=== PATIENT | female | born 1960 | race Hispanic/Latino ===

== ENCOUNTER 2019-05-13 14:44 | Emergency (ER) | payer BC ==
[~2019-05-13] VITALS: Ht 165.1 cm; Wt 62.3 kg
[2019-05-13] MEDS ORDERED: PANTOPRAZOLE 40 MG 10ML VIAL IV NR (15:01)
[2019-05-13] MEDS ORDERED: ONDANSETRON HCL INJ 2MG/ML 2ML 2 MG/ML VIAL IV STA (15:01)
[2019-05-13] MEDS ORDERED: PANTOPRAZOLE 40 MG 10ML VIAL ONE (15:10)
[2019-05-13] MEDS ORDERED: ONDANSETRON HCL INJ 2MG/ML 2ML 2 MG/ML VIAL ONE (15:10)
[2019-05-13] MEDS ORDERED: SODIUM CHLORIDE 0.9% 1000ML 1,000 ML IV SCH (15:15)
[2019-05-13 15:56] VITALS: BP 114/70
== END 2019-05-13 16:12 | disposition home or self-care (01) ==
LOC: FSED 14:44
DX: R10.13 Epigastric pain (principal); K29.00 Acute gastritis without bleeding
CPT/HCPCS: 80053; 81003; 85025; 87400; 96374; 96375; 99283; C9113; J2405; J7030

== ENCOUNTER 2021-07-06 19:00 | Emergency (ER) | payer SELFPAY ==
[~2021-07-06] VITALS: Ht 165.1 cm; Wt 62.1 kg
[2021-07-06] MEDS ORDERED: BACTRIM DS TAB1 EACH PO (20:32)
== END 2021-07-06 20:45 | disposition home or self-care (01) ==
LOC: FSED 19:04
DX: M54.50 Low back pain, unspecified (principal); N39.0 Urinary tract infection, site not specified; R10.2 Pelvic and perineal pain; F17.210 Nicotine dependence, cigarettes, uncomplicated
CPT/HCPCS: 81003; 99282

== ENCOUNTER 2022-01-06 12:54 | Emergency (ER) | payer BC ==
[~2022-01-06] VITALS: Ht 165.1 cm; Wt 62.1 kg
[~2022-01-06 12:54] MED LIST: BACTRIM DS TAB1 EACH PO
[2022-01-06 14:21] LABS: BASOPHILS % 0.4 % (0.0-1.0); EOSINOPHILS % 0.6 % (0.0-6.0); HEMATOCRIT 44.9 % (34.2-44.1); HEMOGLOBIN 15.3 g/dL (12.0-16.0); LYMPHOCYTES # (AUTO) 1.5 (1.0-3.2); LYMPHOCYTES % 27.4 % (18.0-39.1); MEAN CORPUSCULAR HGB CONC 34.1 g/dL (31-35); MONOCYTES # (AUTO) 0.3 (0.2-0.8); MONOCYTES % 5.2 % (4.4-11.3); NEUTROPHILS # (AUTO) 3.6 (2.1-6.9); NEUTROPHILS % 66.2 % (38.7-80.0); PLATELET COUNT 131 x10e3/uL (140-360); RED BLOOD COUNT 4.63 x10e6/uL (3.6-5.1); RED CELL DISTRIBUTION WIDTH 12.1 % (11.7-14.4)
[2022-01-06 14:42] LABS: ALANINE AMINOTRANSFERASE 26 IU/L (0-55); ALBUMIN 4.3 g/dL (3.5-5.0); ALBUMIN/GLOBULIN RATIO 1.3 (0.8-2.0); ALKALINE PHOSPHATASE 89 IU/L (40-150); ANION GAP 15.8 mmol/L (8-16); BLOOD UREA NITROGEN 7 mg/dL (7-26); BUN/CREATININE RATIO 8 (6-25); CALCIUM 9.5 mg/dL (8.4-10.2); CARBON DIOXIDE 26 mmol/L (22-29); CHLORIDE 106 mmol/L (98-107); CREATINE KINASE 121 IU/L (29-168); CREATININE, SERUM 0.84 mg/dL (0.57-1.11); GLUCOSE 101 mg/dL (74-118); POTASSIUM 3.8 mmol/L (3.5-5.1); SODIUM 144 mmol/L (136-145)
== END 2022-01-06 15:50 | disposition home or self-care (01) ==
LOC: ER 13:12
DX: R10.13 Epigastric pain (principal); R13.10 Dysphagia, unspecified
CPT/HCPCS: 36415; 71046; 80053; 82550; 82553; 84484; 85025; 93005; 99283

== ENCOUNTER → 2022-01-22 | Day surgery (SDC) | payer BC, OTHER ==
[~2022-01-22] MED LIST changes: +CENTRUM ADULTS1 EACH PO; +HYOSCYAMINE SULFATE 0.5 MG/ML INJ ONE; +LIDOCAINE HCL 2% LOCAL INJ 5 ML SDV VIAL INJ ONE; +PANTOPRAZOLE SO40 MG PO; +PEPCID AC10 MG PO; +POVIDONE IODINE 0.05% 0.05 % ML PO ONE; +PROPOFOL IV EMULSION 10 MG/ML 20 ML VIAL ONE; +SUCRALFATE1 GM PO
[2022-01-22 14:30] VITALS: BP 134/81
== END | disposition home or self-care (01) ==
LOC: OR 10:47
PROVIDERS: ATTEND Internal Medicine Gastroenterology
DX: R19.7 Diarrhea, unspecified (principal); K63.5 Polyp of colon; K31.7 Polyp of stomach and duodenum; K29.50 Unspecified chronic gastritis without bleeding; K29.60 Other gastritis without bleeding; K21.00 Gastro-esophageal reflux disease with esophagitis, without bleeding; K57.30 Diverticulosis of large intestine without perforation or abscess without bleeding; K64.8 Other hemorrhoids; D72.820 Lymphocytosis (symptomatic); E16.2 Hypoglycemia, unspecified; F17.210 Nicotine dependence, cigarettes, uncomplicated; Z71.6 Tobacco abuse counseling; Z88.0 Allergy status to penicillin; Z01.810 Encounter for preprocedural cardiovascular examination; Z86.16 Personal history of COVID-19
CPT/HCPCS: 43239; 43450; 45378; 45380; 93005; J1980; J2001

== ENCOUNTER → 2022-08-14 | Day surgery (SDC) | payer OTHER ==
[2022-08-12 11:52] LABS: BASOPHILS % 0.6 % (0.0-1.0); EOSINOPHILS # (AUTO) 0.1 (0.0-0.4); EOSINOPHILS % 1.6 % (0.0-6.0); HEMATOCRIT 44.5 % (34.2-44.1); HEMOGLOBIN 14.9 g/dL (12.0-16.0); LYMPHOCYTES # (AUTO) 1.7 (1.0-3.2); LYMPHOCYTES % 32.5 % (18.0-39.1); MEAN CORPUSCULAR HEMOGLOBIN 31.7 pg (28-32); MEAN CORPUSCULAR HGB CONC 33.5 g/dL (31-35); MEAN CORPUSCULAR VOLUME 94.7 fL (81-99); MONOCYTES # (AUTO) 0.4 (0.2-0.8); MONOCYTES % 7.3 % (4.4-11.3); NEUTROPHILS % 57.8 % (38.7-80.0); PLATELET COUNT 145 x10e3/uL (140-360); RED CELL DISTRIBUTION WIDTH 12.3 % (11.7-14.4)
[2022-08-12 12:08] LABS: CALCIUM 9.3 mg/dL (8.4-10.2); CREATININE, SERUM 0.94 mg/dL (0.57-1.11)
[~2022-08-14] MED LIST changes: +ACETAMINOPHEN/CODEINE 300MG - 30MG TAB ONE; +ACETAMINOPHEN/CODEINE 300MG - 30MG TAB PO ONE; +BIOTIN PO; +BUPIVACAINE HCL 0.5% INJ 30 ML VIAL INJ ONE; +CALCIUM PO; +CALCIUM500 MG; +DEXAMETHASONE SOD PHOS INJ 4 MG/ML SDV ONE; +EPHEDRINE SULFATE INJ 50 MG/ML VIAL ONE; +FAMOTIDINE 20 MG/2 ML VIAL IV ONE; +FENTANYL CITRATE/PF 100MCG/2 ML INJ IV ONE; +FENTANYL CITRATE/PF 100MCG/2 ML INJ ONE; +FISH OIL PO; +HYDROCODONE/APAP 5MG-325MG TAB ONE; -HYOSCYAMINE SULFATE 0.5 MG/ML INJ ONE; +LACTATED RINGER'S 1,000 ML ONE; +MIDAZOLAM HCL 2 MG/2 ML VIAL ONE; +Morphine 10mg syringe 10 MG/ML INJ ONE; +NEOSTIGMINE 1 MG/ML 10ML VIAL ONE; +ONDANSETRON HCL INJ 2MG/ML 2ML 2 MG/ML VIAL ONE; +PHENTERMINE H37.5 MG PO; +SODIUM CHLORIDE 0.9% 250ML 250 ML ONE; +VITAMIN B12 PO; +Vancomycin IV 1 GM VIAL ONE
[2022-08-14 11:35] VITALS: TEMP 97.2
[2022-08-14 12:05] VITALS: BP 129/81; PULSE 67; RESP 17; O2SAT 97
== END | disposition home or self-care (01) ==
LOC: OR 06:32
PROVIDERS: ATTEND Podiatrist Foot Surgery
DX: S93.322A Subluxation of tarsometatarsal joint of left foot, initial encounter (principal); M20.42 Other hammer toe(s) (acquired), left foot; M21.612 Bunion of left foot; K21.9 Gastro-esophageal reflux disease without esophagitis; Z88.0 Allergy status to penicillin; Z01.810 Encounter for preprocedural cardiovascular examination; Z01.812 Encounter for preprocedural laboratory examination; Z01.818 Encounter for other preprocedural examination
CPT/HCPCS: 28285; 28292; 28730; 36415; 71046; 80048; 85025; 93005; C1713 ×3; J1100; J2001; J2250; J2270; J2405; J2704; J2710; J3010; J3370; J7050; J7121; 76000